=== PATIENT | male | born 1945 | race Caucasian/White ===

== ENCOUNTER 2024-11-02 08:45 | Day surgery (SDC) | payer MEDICARE, SELFPAY ==
--- NOTE | 2024-11-01 07:00 | EKG_ITS ---
[facility] Test Date: 2024-11-01 Pat Name: CASSIDY PARR Department: Room: - Gender: Male Service Coordinator: RT STUDENT : 1945 Requested By: Ca Howell Order Number: [id number] Reading MD: Ca Howell Measurements Intervals [place] Rate: 64 P: -21 WI: 163 QRS: 6 QRSD: 84 T: -67 QT: 414 QTc: 427 Interpretive Statements SINUS RHYTHM WITH SINUS ARRHYTHMIA SEPTAL MYOCARDIAL INFARCTION , PROBABLY OLD MODERATE T-WAVE ABNORMALITY, CONSIDER INFERIOR ISCHEMIA No previous ECG available for comparison /[id number]
[2024-11-01 10:53] VITALS: BMI 24.8
[2024-11-01 12:36] LABS: Basophils # (Auto) 0.1 Thou/mm3 (0.0-0.2); Basophils % (Auto) 1 % (0-2.5); Eosinophils # (Auto) 0.2 Thou/mm3 (0.0-0.5); Eosinophils % (Auto) 3 % (0-10); Hematocrit 36.9 % (41.0-53.0); Hemoglobin 12.6 g/dL (13.5-16.0); Immature Granulocytes % (Auto) 1 % (0-0); Immature Granulocytes Auto 0.04 Thou/mm3 (0.00-0.00); Lymphocytes # (Auto) 2.1 Thou/mm3 (1.0-4.8); Lymphocytes % (Auto) 24 % (10-50); Mean Corpuscular HGB Conc 34.1 g/dl (31.0-37.0); Mean Corpuscular Hemoglobin 31.5 pg (25.0-35.0); Mean Corpuscular Volume 92 fL (80-100); Monocytes % (Auto) 11 % (0-12); Neutrophils # (Auto) 5.2 Thou/mm3 (1.8-7.7); Neutrophils % (Auto) 61 % (37-80); Nucleated Red Blood Cell % 0 /100 WBC (0); Platelet Count 350 Thou/mm3 (140-440); RDW Standard Deviation 49.3 fL (35.1-43.9); White Blood Count 8.6 Thou/mm3 (3.8-10.6)
[2024-11-01 12:52] LABS: Alanine Aminotransferase 14 U/L (10-49); Albumin, Serum 4.7 gm/dL (3.4-4.8); Alkaline Phosphatase 66 U/L (46-116); Anion Gap 10 (7-16); Aspartate Amino Transferase 20 U/L (0-34); BUN/Creatinine Ratio 15 Ratio (12-20); Bilirubin,Total 0.5 mg/dL (0.3-1.2); Blood Urea Nitrogen 16 mg/dL (9-23); Calcium 9.4 mg/dL (8.3-10.6); Calcium (Corrected) 9.4 mg/dL (8.5-10.1); Carbon Dioxide 25.2 mMol/L (20.0-31.0); Chloride 104 mMol/L (98-107); Creatinine (Component) 1.1 mg/dL (0.6-1.3); Estimated Creatinine Clearance 57.1 mL/min (>60); Globulin 2.3 gm/dL (2.3-3.5); Glucose 99 mg/dL (74-106); Osmolality,Calculated 278 (275-295); Potassium 4.4 mMol/L (3.4-5.1); Sodium 139 mMol/L (136-145); eGFR > 60 See Note
--- NOTE | 2024-11-01 15:09 | SUR.PREOP ---
Cardiac history reviewed with Dr Rivera.
[2024-11-02 09:29] VITALS: BP 143/87; PULSE 65; RESP 16; TEMP 36.9; O2SAT 98; BMI 24.9
[2024-11-02] MEDS: RINGERS LACTATED 1000 ML 1,000 ML 20 ML IV (09:34)
[2024-11-02 11:22] VITALS: BP 105/71; PULSE 86; RESP 15; TEMP 36.4; O2SAT 96
--- NOTE | 2024-11-02 11:22 | SUR.PHASEI ---
pt received from OR in recovery bay 1. pt obtunded, breathing unlabored on room air, lma in place. v/s stable. pt dressing to abd cdi. report received from Corrie SHEPPARD and Dominic HOLDER.
--- NOTE | 2024-11-02 11:27 | ESOP_ITS ---
Date of Procedure 11/02/24 Pre Op Diagnosis Left inguinal hernia Post Op Diagnosis Indirect left inguinal hernia Procedure Left inguinal hernia repair with mesh Findings Patient was noted to have indirect left inguinal hernia defect Procedure Description Patient brought into the operating room in supine position. After administration of general endotracheal anesthesia, patient's left groin was shaved, prepped and draped in standard surgical manner. The left inguinal crease was anesthetized with half percent Marcaine. An approximately 6 cm incision was made and dissection was carried to subcutaneous tissue. The Arnold's fascia was divided and the external oblique aponeurosis was opened towards the external ring. The hernia sac and the spermatic cord structures were from the posterior aspect of the external oblique aponeurosis at the level of pubic tubercle. The hernia sac was then meticulously dissected off the spermatic cord structures at the level of internal ring. Patient was noted to have indirect left inguinal hernia sac. The hernia sac was then ligated at the level of internal ring. The floor of inguinal canal was then reconstructed with ultra Pro proceed mesh. The mesh was secured with running 2-0 Prolene suture. The mesh secured medially to the pubic tubercle, superiorly into the conjoin tendon, inferiorly and to the shelving edge of inguinal ligament, the mesh was placed around the cord structures and tacked under the external oblique aponeurosis laterally. The area was copiously and thoroughly washed and irrigated, all the fluids were suctioned and the suction fluid returned clear. Hemostasis was adequate and satisfactory. External oblique aponeurosis was closed with running 2-0 Vicryl suture, and Arnold's fascia was closed with interrupted suture using 3-0 Vicryl. The incision was closed with 4-0 Monocryl in subcutaneous fashion. Instruments, needles and sponge counts were reported to be correct ?2. Patient tolerated the procedure well. He was extubated, breathing spontaneously and without difficulty and was transferred to postanesthesia care in stable condition. Anesthesia GETA and local Pathology / specimen Other (Hernia sac) Estimated Blood Loss 10 Condition Stable Disposition PACU Surgeon Ca Howell MD Surgical Staff Operation Date: 11/02/24 11:00 Case Staff CAP AND STUD MACHINE OPERATOR: Carlos A Quiroga RNerp technical lead: Janet Pisano
[2024-11-02 11:30] VITALS: BP 121/64; PULSE 81; RESP 12; TEMP 36.4; O2SAT 97
[2024-11-02 11:35] VITALS: BP 113/64; PULSE 78; RESP 12; TEMP 36.4; O2SAT 98
--- NOTE | 2024-11-02 11:39 | SUR.PHASEI ---
pt able to tolerate oral fluids without difficulty swallowing or nausea/vomiting.
[2024-11-02 11:40] VITALS: BP 136/91; PULSE 84; RESP 12; TEMP 36.3; O2SAT 98
[2024-11-02 12:00] VITALS: BP 145/91; PULSE 69; RESP 13; TEMP 36.2; O2SAT 98
--- NOTE | 2024-11-02 12:18 | SUR.PHASEII ---
pt awake and alert, breathing unlabored on room air. v/s stable. pt dressing to lower abd cdi. pt able to ambulate to wheelchair with steady gait. d/c instructions given with Sandra, all questions answered. pt d/c via wheelchair with all belongings.
== END 2024-11-02 12:18 | disposition home or self-care (01) ==
LOC: S2EX 12:56
PROVIDERS: Anesthesiology; PCP Family Medicine; Referring Provider Surgery; Visit Provider Surgery
PROC: (CPT 49505; principal; 2024-11-02 10:45)
DX: K40.90 Unilateral inguinal hernia, without obstruction or gangrene, not specified as recurrent (principal); Z01.810 Encounter for preprocedural cardiovascular examination
CPT/HCPCS: 49505; 36415; 80053; 85025; 93005; A4217; A4649; C1781; J0690; J1100; J1885; J2405; J2704; J3010; J3490; J7120; J1596

== ENCOUNTER → 2025-04-18 | Outpatient (CLI) | payer MEDICARE, SELFPAY ==
--- NOTE | 2025-04-18 13:07 | XR_ITS ---
Examination: Venous duplex lower extremity sonogram, bilateral. Date and time of exam: April 18, 2025 1344 hours INDICATIONS: Bilateral ankle and foot swelling 3 weeks Technique: Multiple sonographic images of the deep venous system have been obtained. B-mode/2-D grayscale imaging of vascular structures and Doppler spectral analysis (waveforms) and color performed Both legs are examined. Findings: Deep venous systems do not demonstrate abnormal echogenicity. Right popliteal cyst 5.4 cm All visualized deep veins exhibit compressibility. All visualized deep veins exhibit augmentation. Impression: Negative for deep vein thrombosis
== END | disposition home or self-care (01) ==
LOC: CDIM 12:50
PROVIDERS: PCP Family Medicine; Referring Provider Student in an Organized Health Care Education/Training Program; Visit Provider Student in an Organized Health Care Education/Training Program
DX: R22.9 Localized swelling, mass and lump, unspecified (principal)
CPT/HCPCS: 93970